=== PATIENT | male | born 1955 | race Caucasian/White ===

== ENCOUNTER 2022-11-24 12:52 | Emergency (ER) | payer BC, SELFPAY ==
--- NOTE | ~2022-11-24 | XR_ITS ---
EXAMINATION: XR ribs LT 2V w CXR 2V DATE: 11/24/2022 13:29 INDICATION: Left rib pain post fall TECHNIQUE: PA and lateral views of the chest and 3 views of the left ribs were obtained. COMPARISON: None FINDINGS: Large calcified nodule in the posterior right lower lobe consistent with old granulomatous disease. N o other airspace opacities, pulmonary edema, pleural effusion or pneumothorax. Cardiomediastinal silh ouette is normal. No rib fractures identified. IMPRESSION: 1. No rib fracture or acute cardiopulmonary disease. Reviewed, dictated and finalized at location B.
--- NOTE | ~2022-11-24 | XR_ITS ---
EXAMINATION: XR tibia fibula LT 2V DATE: 11/24/2022 13:29 INDICATION: Left lower leg pain post fall TECHNIQUE: Anteroposterior and lateral views of the left tibia and fibula were obtained. COMPARISON: None. FINDINGS: Alignment is normal. No fracture. Mild joint space narrowing the medial compartment of the left knee and tiny marginal osteophytes along the patella. Soft tissue swelling with subcutaneous edema anterio rly at the mid to distal left lower leg. There is also some soft tissue swelling about the medial mal leolus. No left knee or ankle joint effusion. IMPRESSION: 1. No acute osseous abnormality. Reviewed, dictated and finalized at location B.
[2022-11-24 12:56] VITALS: BP 152/102; PULSE 99; RESP 20; TEMP 36.7; O2SAT 97
[2022-11-24 12:59] VITALS: BP 163/105; PULSE 99; RESP 20; TEMP 36.7; O2SAT 97
--- NOTE | 2022-11-24 13:04 | ED.GENADULT ---
HPI - General Adult General Chief complaint: Fall Stated complaint: Fall/ L rib pain Time Seen by Provider: 11/24/22 12:57 History of Present Illness HPI narrative: the patient is a 67-year-old male with history of multiple orthopedic procedures in the past including bilateral total hip replacement on the right x2, left hip replacement, back surgery, bilateral shoulder surgery, facial surgery for trauma, and a previous left nephrectomy for cancer. He has history of hypertension and a right lower extremity deep venous thrombus for which she takes Eliquis. He has taken his blood pressure medications today. He was outside working close to water whereby he tripped and fell after losing his balance by the dee. He fell resulting in pain in the left ribs and also the left chin region. He has a hematoma at the left anterior hobson. He has pain in both areas after the fall. He is able to ambulate with a cane but with pain. No other injuries. No neck or back pain. No loss of consciousness. No nausea or vomiting. No dizziness or lightheadedness. Did not strike his head. Related Data Home Medications Medication Instructions Recorded Confirmed amlodipine 5 mg tablet 5 mg PO DAILY 11/24/22 11/24/22 apixaban 5 mg tablet (Eliquis) 5 mg PO BID 11/24/22 11/24/22 atorvastatin 40 mg tablet 40 mg PO DAILY 11/24/22 11/24/22 omeprazole 40 mg capsule,delayed 40 mg PO DAILY 11/24/22 11/24/22 release tamsulosin 0.4 mg capsule 0.4 mg PO DAILY 11/24/22 11/24/22 Allergies Allergy/AdvReac Type Severity Reaction Status Date / Time strawberry Allergy Anaphylaxis Verified 11/24/22 12:55 Review of Systems Review of Systems: All systems reviewed & are unremarkable except as noted in HPI and below Constitutional: Constitutional: Denies chills, Denies excessive sweating, Denies fatigue, Denies fever(s), Denies headache(s) and Denies weakness Eyes: Eyes: Denies change in vision and Denies photophobia ENT: Denies dysphagia, Denies dizziness, Denies headache(s), Denies lip swelling, Denies nasal congestion, Denies sore throat and Denies tongue swelling Cardiovascular: Cardiovascular: Reports chest pain (pain in left lateral chest wall area at the ribs.), Denies syncope, Denies rapid heart rate and Denies dyspnea Respiratory: Respiratory: Denies cough, Denies dyspnea and Denies wheezing Gastrointestinal: Gastrointestinal: Denies abdominal pain, Denies constipation, Denies dysphagia, Denies diarrhea, Denies nausea and Denies vomiting Genitourinary: Genitourinary: Denies hematuria, Denies dysuria, Denies urinary frequency and Denies urinary urgency Musculoskeletal: Musculoskeletal: Denies back pain, Denies myalgias, Denies arthralgias, Denies joint swelling and Denies numbness Comments: pain in left anterior hobson Integumentary/Breasts: Skin/Breast: Denies pruritus, Denies erythema and Denies rash Comments: ecchymosis at left mid anterior hobson Neurologic: Denies confusion, Denies dizziness, Denies syncope, Denies headache(s), Denies focal weakness, Denies numbness and Denies weakness Psychiatric: Psychiatric: Denies anxiety and Denies confusion Endocrine: Endocrine: Denies excessive sweating and Denies fatigue Hematologic/Lymphatic: Hematologic/Lymphatic: Denies easy bleeding and Denies easy bruising Allergic/Immunologic: Allergic/Immunologic: Denies lip swelling, Denies tongue swelling and Denies wheezing Exam Const: General: healthy appearing, no acute distress, alert and well nourished Nutritional Appearance: well nourished Orientation/consciousness: patient oriented x3 Limitations: no limitations HENMT: Head: normal to inspection Ears: external ears normal Face/Nose/Sinus: normal facial exam Face and sinus: normal facial exam Mouth: Yes moist mucous membranes Throat: posterior oropharynx normal Eyes: Conjunctivae: conjunctivae normal Pupils: Equal, round and reactive pupils present EOM: EOMs intact bilaterally Neck: N
[2022-11-24] MEDS: traMADol HCL (*CRX) 50 MG TABLET 100 MG PO (13:10)
[2022-11-24] MEDS: ACETAMINOPHEN 325 MG TABLET 650 MG PO (13:11)
[2022-11-24 13:49] VITALS: BP 163/105; PULSE 99; RESP 20; TEMP 36.7
== END 2022-11-24 14:01 | disposition home or self-care (01) ==
PROVIDERS: Emergency Provider Emergency Medicine
DX: S20.212A Contusion of left front wall of thorax, initial encounter (principal); S80.12XA Contusion of left lower leg, initial encounter; I10 Essential (primary) hypertension; Z85.528 Personal history of other malignant neoplasm of kidney; Z79.01 Long term (current) use of anticoagulants; W01.0XXA Fall on same level from slipping, tripping and stumbling without subsequent striking against object, initial encounter; Y92.838 Other recreation area as the place of occurrence of the external cause
CPT/HCPCS: 71046; 71100; 73590; 99284; A9270

== ENCOUNTER 2024-03-09 09:34 | Emergency (ER) | payer BC, SELFPAY ==
--- NOTE | ~2024-03-09 | CT_ITS ---
EXAMINATION: CTA chest PE protocol DATE: 03/09/2024 11:13 INDICATION: Chest wall pain. Shortness of breath. TECHNIQUE: Computed tomography angiography (CTA) of the chest was performed with 100 mL Omnipaque-350 intravenous contrast timed to evaluate the pulmonary arteries. Coronal maximum intensity projection 3D-reconstructions were created by the technologist. Automated exposure control and iterative reconst ruction technique were employed. The dose-length product was 505.69 mGy-cm. COMPARISON: Chest single view 03/09/2024 FINDINGS: The lungs demonstrate minimal atelectasis. Calcified bilateral lung nodules and calcified h ilar and mediastinal lymph nodes are consistent with old granulomatous disease. No pleural effusion. The heart size is normal. No pericardial effusion. There is no pulmonary embolus. There is severe cer vical spondylosis and mild thoracic spondylosis. There are bridging endplate osteophytes at multiple levels in the spine, consistent with diffuse idiopathic skeletal hyperostosis (DISH). IMPRESSION: 1. No pulmonary embolus. Reviewed, dictated and finalized at location A. G[employer] IMPRESSION: 1. No pulmonary embolus.
--- NOTE | ~2024-03-09 | XR_ITS ---
EXAMINATION: XR chest 1V portable DATE: 03/09/2024 10:08 INDICATION: Right chest wall pain. TECHNIQUE: A single frontal view of the chest was obtained. COMPARISON: Chest 2 views 11/24/2022 FINDINGS: A calcified right lung nodule is consistent with old granulomatous disease. No pleural effu daisy or pneumothorax. The heart size is normal. IMPRESSION: 1. No acute cardiopulmonary disease. Reviewed, dictated and finalized at location A. [employer] MANAGER
[2024-03-09 09:36] VITALS: BP 164/96; PULSE 105; RESP 20; TEMP 36.5; O2SAT 97
--- NOTE | 2024-03-09 09:49 | ED.URI ---
HPI - URI/Sore Throat General Chief Complaint: Upper Respiratory Infection Stated Complaint: flu like symptoms Time Seen by Provider: 03/09/24 09:41 Source: patient Mode of arrival: ambulatory Limitations: no limitations History of Present Illness HPI Narrative: 69-year-old male with a history of hypertension, dyslipidemia, BPH, urothelial cancer status post left nephrectomy, right lower extremity DVT, negative stress test around 3 years ago presents to the ED 2 weeks after being diagnosed with COVID( had prior episodes of COVID infection) with a 3 day history of -- cough which is productive of mucoid sputum. patient is an ex-smoker and quit 30 years ago. He has intermittent bronchitis during the fall for which she uses albuterol. -- Shortness of breath. No paroxysmal nocturnal dyspnea. -- Right lower chest wall pain -- generalized weakness without any focal deficits. -- Sore throat -- body ache Denied any chest pain. No fever or chills MD elicited complaint: cough and sore throat Pertinent past history: other ( COVID 2 weeks ago) Onset (ago): day(s) ( 3 days) Consistency: constant Description of mucous: watery Able to tolerate fluids by mouth: Yes Exacerbating factors: nothing Relieving factors: nothing Associated symptoms: denies other symptoms and myalgias Treatments prior to arrival: none Related Data Home Medications Medication Instructions Recorded Confirmed amlodipine 5 mg tablet 5 mg PO DAILY 11/24/22 03/09/24 apixaban 5 mg tablet (Eliquis) 5 mg PO BID 11/24/22 03/09/24 atorvastatin 40 mg tablet 40 mg PO DAILY 11/24/22 03/09/24 omeprazole 40 mg capsule,delayed 40 mg PO DAILY 11/24/22 03/09/24 release tamsulosin 0.4 mg capsule 0.4 mg PO DAILY 11/24/22 03/09/24 Allergies Allergy/AdvReac Type Severity Reaction Status Date / Time strawberry Allergy Anaphylaxis Verified 11/24/22 12:55 Review of Systems Review of Systems: All systems reviewed & are unremarkable except as noted in HPI and below Constitutional: Constitutional: Reports as per HPI, Reports no additional constitutional complaints, Reports fatigue and Reports weakness Eyes: Eyes: Reports as per HPI and Reports no additional eye complaints ENT: Reports system reviewed and no additional complaints, except as documented and Reports sore throat Cardiovascular: Cardiovascular: Reports as per HPI and Reports no additional cardiovascular complaints Respiratory: Respiratory: Reports as per HPI, Reports no additional respiratory complaints, Reports cough and Reports dyspnea Gastrointestinal: Gastrointestinal: Reports as per HPI and Reports no additional gastrointestinal complaints Genitourinary: Genitourinary: Reports no additional male genitourinary complaints and Reports as per HPI Musculoskeletal: Musculoskeletal: Reports no additional musculoskeletal complaints and Reports as per HPI Integumentary/Breasts: Skin/Breast: Reports system reviewed and no additional complaints, except as docu and Reports as per HPI Neurologic: Reports system reviewed and no additional complaints, except as documented and Reports as per HPI Psychiatric: Psychiatric: Reports no additional psychiatric complaints and Reports as per HPI Endocrine: Endocrine: Reports no additional endocrine complaints and Reports as per HPI Hematologic/Lymphatic: Hematologic/Lymphatic: Reports no additional hematologic/lymphatic complaints and Reports as per HPI Allergic/Immunologic: Allergic/Immunologic: Reports no additional allergic/immunologic complaints and Reports as per HPI [facility] Past Medical History Medical History (Updated 03/09/24 @ 11:24 by Catarino Hills MD) Bronchitis DVT (deep venous thrombosis) Localized swelling, mass and lump, lower limb, bilateral Urothelial cancer Surgical History Surgical History (Updated 03/09/24 @ 09:54 by Catarino Hills MD) History of nephrectomy Exam Narrative: vitals are stable. Blood pressure 164/96. Respirations of 20. Oxygen saturation of 97% on room air. Const: General: no acute distress Orientation/consciousness: patient oriented x3 Limitations: no limitations HENMT: Head: normal to inspection Ears: external ears normal Face/Nose/Sinus: Normal external nose present Face and sinus: normal facial exam Mouth: Yes Normal oral and palatal mucosa present Throat: posterior oropharynx normal Eyes: Conjunctivae: conjunctivae normal Pupils: Equal, round and reactive pupils present EOM: EOMs intact bilaterally Direct Ophthalmoscopy: no photophobia Neck: Neck: normal visual inspection, no lymphadenopathy and no meningeal signs Chest: Chest palpation & inspection: normal inspection of the chest Resp: Effort & Inspection: normal respiratory effort Auscultation: clear to auscultation bilaterally Cardio: Rate: regular rate Rhythm: regular rhythm GI: GI Palp: Yes Soft to palpation Other: No tenderness/ rigidity /rebound. : General: Yes no CVA tenderness Back/Spine/Pelvis: Back: no CVA tenderness Skin: General skin exam: normal color Rashes: no rashes Wounds: no wounds Neuro: General: patient oriented x3, moves all extremities, no meningeal signs, no focal motor deficits and CN's II-XI intact bilaterally Cranial nerves: Yes Nystagmus not present Speech: normal speech Gait exam (Neuro): Normal gait present Extrem: General: normal to inspection and no clubbing, cyanosis or edema Psych: Mental Status: mental status grossly normal Affect: normal affect Attitude: cooperative Course Course Emergency Course: Upper respiratory tract infection bronchitis right lower chest wall pain Vital Signs Vital signs: Vital Signs Oxygen Delivery Room Air 03/09/24 09:35 Temperature 36.5 C 03/09/24 09:36 Pulse Rate 105 H 03/09/24 09:36 Respiratory Rate 20 03/09/24 09:36 Blood Pressure 164/96 H 03/09/24 09:36 Pulse Oximetry 97 03/09/24 09:36 Oxygen Delivery Room Air 03/09/24 09:36 MDM - URI/Sore Throat MDM Narrative Medical decision making narrative: Upper respiratory tract infection chest wall pain Differential Diagnosis Differential diagnosis: Likely croup and viral infection Medical Records Attestation: I reviewed the patient's medical records. Lab Data Attestation: I reviewed the patient's lab results. 03/09/24 10:12 03/09/24 10:12 Labs: Lab Results 03/09/24 03/09/24 Range/Units 10:12 10:18 WBC 6.9 (4.8-10.8) K/mm3 RBC 4.69 L (4.70-6.10) M/mm3 Hgb 12.4 (12.4-15.3) g/dL Hct 38.4 (37.0-46.0) % MCV 81.9 (78.0-102.0) fL MCH 26.4 L (27.0-31.0) pg MCHC 32.3 (32-36) g/dL RDW 15.6 H (11.6-14.4) % Plt Count 184 (150-420) K/mm3 MPV 9.8 (8.7-11.0) fl Immature Gran % (Auto) 0.3 H (0.0-0.0) % Neut % (Auto) 63.3 (50.0-70.0) % Lymph % (Auto) 28.5 (18.0-42.0) % Mccormick % (Auto) 4.9 (2.0-11.0) % Eos % (Auto) 2.6 (1.0-6.0) % Baso % (Auto) 0.4 (0.0-1.0) % Lymph # (Auto) 1.96 (1.10-4.50) K/mm3 Mccormick # (Auto) 0.34 (0.10-0.90) K/mm3 Eos # (Auto) 0.18 (0.02-0.50) K/mm3 Baso # (Auto) 0.03 (0.00-0.10) K/mm3 Abs Immat Gran (auto) 0.02 H (0.00-0.00) K/mm3 Absolute Neuts (auto) 4.34 (1.70-7.20) K/mm3 Absolute Nucleated RBC 0.00 (0.00-0.00) K/mm3 Nucleated RBC % 0.0 (0-0.0) % D-Dimer 0.57 H* (0.19-0.50) mg/L Sodium 140 (136-145) mmol/L Potassium 4.0 (3.5-5.1) mmol/L Chloride 103 (98-108) mmol/L Carbon Dioxide 29 (21-32) mmol/L Anion Gap 8 (4-12) mmol/L BUN 19 H (7-18) mg/dL Creatinine 1.46 H (0.70-1.30) mg/dL Estim Creat Clear Calc 52 ml/min Estimated GFR 48 L (59 - ) Glucose 105 H (70-99) mg/dL Calculated Osmolality 292 (285-295) mOsm/kg Lactic Acid 1.0 (0.4-2.0) mmol/L Calcium 8.7 (8.5-10.1) mg/dL Total Bilirubin 0.4 (0.00-1.00) mg/dL AST 13 L (15-37) U/L ALT 17 (16-63) U/L Alkaline Phosphatase 124 H (46-116) U/L Troponin I < 4.0 (0.00-60.4) ng/L NT-Pro-B Natriuret Pep 462 H (0-125) pg/mL Total Protein 6.9 (6.4-8.2) g/dL Albumin 3.3 L (3.4-5.0) g/dL Urine Color Light yellow (Yellow) Urine Appearance Clear (Clear) Urine pH 6.5 (5.0-8.0) Ur Specific [place] 1.020 (1.010-1.020) Urine Protein Negative (Negative) Urine Glucose (UA) Negative (Negative) Urine Ketones Negative (Negative) Ur Blood (Man) Negative (Negative) Urine Nitrate Negative (Negative) Urine Bilirubin Negative (Negative) Urine Urobilinogen 0.2 (0.2-1.0) mg/dL Leukocyte Esterase Rfl Negative (Negative) MARIA/UL ECG Data EKG #1: ECG completion date: 03/09/24 ECG completion time: 01:01 Interpretation: normal sinus rhythm. Normal axis. No ST-T wave changes noted. Discharge Plan Discharge Clinical Impression: Chest wall pain Upper respiratory infection Qualifiers: URI type: unspecified URI Qualified Code(s): J06.9 - Acute upper respiratory infection, unspecified Patient Disposition: Home, Self-Care Condition: Stable Instructions: Antibiotic Form, Upper Respiratory Infection (ED), Chest Wall Pain (ED) Patient Language: Pakistani Prescriptions: No Action atorvastatin 40 mg Tablet 40 mg PO DAILY amlodipine 5 mg Tablet 5 mg PO DAILY omeprazole 40 mg Capsule,Delayed Release(Dr/Ec) 40 mg PO DAILY tamsulosin 0.4 mg Capsule 0.4 mg PO DAILY Eliquis 5 mg Tablet 5 mg PO BID Follow-up/Referrals: UNKNOWN,DOCTOR [Non-Staff] - Time of Disposition: 11:24
--- NOTE | 2024-03-09 09:57 | ECG_ITS ---
Test Date: 2024-03-09 10:15:13 Measurements Intervals [place] Rate: 72 P: 65 [place]: 189 QRS: 39 QRSD: 94 T: 63 QT: 355 QTc: 389 Interpretive Statements SINUS RHYTHM NORMAL ECG No previous ECG available for comparison Electronically Signed On 03-09-2024 10:58:32 PARAMEDIC RN by Florencio Kuhn D.O.
[2024-03-09 10:18] LABS: Basophils Absolute Auto 0.03 K/mm3 (0.00-0.10); Basophils Percent Auto 0.4 % (0.0-1.0); Eosinophils Absolute Auto 0.18 K/mm3 (0.02-0.50); Eosinophils Percent Auto 2.6 % (1.0-6.0); Hematocrit 38.4 % (37.0-46.0); Hemoglobin 12.4 g/dL (12.4-15.3); Immature Granulocyte Absolute 0.02 K/mm3 (0.00-0.00); Immature Granulocyte Percent A 0.3 % (0.0-0.0); Lymphocytes Absolute Auto 1.96 K/mm3 (1.10-4.50); Lymphocytes Percent Auto 28.5 % (18.0-42.0); Mean Corpuscular HGB Conc 32.3 g/dL (32-36); Mean Corpuscular Hemoglobin 26.4 pg (27.0-31.0); Mean Corpuscular Volume 81.9 fL (78.0-102.0); Mean Platelet Volume 9.8 fl (8.7-11.0); Monocytes Absolute Auto 0.34 K/mm3 (0.10-0.90); Monocytes Percent Auto 4.9 % (2.0-11.0); Neutrophils Absolute Auto 4.34 K/mm3 (1.70-7.20); Neutrophils Percent Auto 63.3 % (50.0-70.0); Platelet Count Result 184 K/mm3 (150-420); Red Blood Count 4.69 M/mm3 (4.70-6.10); Red Cell Distribution Width 15.6 % (11.6-14.4); White Blood Count 6.9 K/mm3 (4.8-10.8)
[2024-03-09 10:30] LABS: Add Urine Microscopic? NO; Appearance Urine Clear (Clear); Bilirubin Urine Negative (Negative); Blood Urine Negative (Negative); Color Urine Light Yellow (Yellow); Glucose Urine UA Negative (Negative); Ketones Urine Negative (Negative); Leukocyte Esterase Ur Negative LEU/UL (Negative); Nitrate Urine Negative (Negative); Protein Urine Negative (Negative); Urobilinogen Urine 0.2 mg/dL (0.2-1.0); pH Urine 6.5 (5.0-8.0)
[2024-03-09 10:36] LABS: Troponin I < 4.0 ng/L (0.00-60.4)
[2024-03-09 10:40] LABS: Alanine Aminotransferase 17 U/L (16-63); Albumin Level 3.3 g/dL (3.4-5.0); Alkaline Phosphatase 124 U/L (46-116); Anion Gap 8 mmol/L (4-12); Aspartate Amino Transferase 13 U/L (15-37); Bilirubin,Total 0.4 mg/dL (0.00-1.00); Blood Urea Nitrogen 19 mg/dL (7-18); Calcium 8.7 mg/dL (8.5-10.1); Carbon Dioxide 29 mmol/L (21-32); Chloride 103 mmol/L (98-108); D Dimer 0.57 mg/L (0.19-0.50); Estimated CRCL calculation 52 ml/min; Estimated Glomerular Filt Rate 48; Glucose 105 mg/dL (70-99); NT Pro B Type Natriuretic Pept 462 pg/mL (0-125); Osmolality Calculated 292 mOsm/kg (285-295); Sodium 140 mmol/L (136-145); Total Protein 6.9 g/dL (6.4-8.2)
[2024-03-09] MEDS: SODIUM CHLORIDE 0.9% IV 500 ML 999 ML IV CONT (11:28)
[2024-03-09 11:48] VITALS: BP 168/83; PULSE 89; RESP 18; TEMP 36.3; O2SAT 97
== END 2024-03-09 11:48 | disposition home or self-care (01) ==
PROVIDERS: Emergency Provider Internal Medicine Critical Care Medicine
DX: J06.9 Acute upper respiratory infection, unspecified (principal); R07.89 Other chest pain; I10 Essential (primary) hypertension; E78.5 Hyperlipidemia, unspecified; Z79.899 Other long term (current) drug therapy; Z79.01 Long term (current) use of anticoagulants
CPT/HCPCS: 36415; 71045; 71275; 80053; 81003; 83605; 83880; 84484; 85025; 85380; 93005; 99284; J7040; Q9967